=== PATIENT | female | born 1980 | race American Indian/Alaskan Native ===

== ENCOUNTER 2019-03-22 09:24 | Emergency (ER) | payer SELFPAY ==
[2019-03-22] MEDS ORDERED: SOLU-Medrol IV ONE (10:19)
[2019-03-22] MEDS ORDERED: PROVENTIL IH ONE (10:19)
[2019-03-22] MEDS ORDERED: MAGNESIUM SULFATE 2GM/50ML 2 GM/50 ML BAG IV ONE (10:19)
[2019-03-22] MEDS ORDERED: ATROVENT IH STA (10:21)
--- NOTE | 2019-03-22 10:22 | Emergency Department Report ---
ED General Adult HPI - General Chief complaint: Dyspnea/Respdistress Stated complaint: ASTHMA Time Seen by Provider: 03/22/19 10:11 Source: patient, RN notes reviewed, old records reviewed Mode of arrival: Stretcher Limitations: Physical Limitation - History of Present Illness Initial comments: This is a 38-year-old female. I have not evaluated this patient in the past. She does not have a local primary care doctor. She states she is not . Her primary registrar museum is Dr. Antonieta White Reportedly has a history of congestive heart failure, to me, unknown etiology, unknown ejection fraction, and asthma. Presents to the ER today with complaint of nontraumatic shortness of breath. This is also painless. It is constant. It worsens with physical exertion. It decreases with rest and position. Reports recent airplane shipped to [place] last month. Denies leg pain or leg swelling. Denies hematemesis, bright red blood per rectum. Had a CT scan of the chest October 2018, negative for pulmonary embolus, suggestive of congestive changes. She endorses compliance with medications. She denies dietary indiscretions. She is not on home oxygen at this time. -: Gradual Consistency: constant Improves with: other Worsens with: other Associated Symptoms: shortness of breath, weakness - Related Data Home Medications Medication Instructions Recorded Confirmed Last Taken Aspirin 1 tab PO DAILY 11/10/18 03/22/19 Unknown Carvedilol [Coreg] 1 tab PO BID 11/10/18 03/22/19 11/10/18 Furosemide [Lasix TAB] 1 tab PO DAILY 11/10/18 03/22/19 11/09/18 Spironolactone 12.5 tab PO QDAY 11/10/18 03/22/19 11/10/18 Previous Rx's Medication Instructions Recorded Last Taken Type ALBUTEROL Inhaler(NF) [VENTOLIN 2 puff IH Q4HR PRN #1 inha 11/10/18 Unknown Rx Inhaler(NF)] ALBUTEROL NEB's [Proventil 0.083% 2.5 mg IH TID PRN #30 neb 11/10/18 Unknown Rx NEBS] Famotidine [Pepcid] 20 mg PO BID #30 tablet 11/10/18 Unknown Rx Inhaler, Assist Devices [Space 1 each MC PRN #1 spacer 11/10/18 Unknown Rx Chamber Plus] predniSONE [Deltasone] 40 mg PO QDAY 5 Days tab 11/10/18 Unknown Rx Allergies Allergy/AdvReac Type Severity Reaction Status Date / Time No Known Allergies Allergy Unverified 06/16/18 14:30 ED Review of Systems ROS: Stated complaint: ASTHMA Other details as noted in HPI Constitutional: malaise. denies: fever Eyes: denies: vision change ENT: congestion Respiratory: shortness of breath Cardiovascular: denies: chest pain, edema, syncope Gastrointestinal: denies: nausea, vomiting Genitourinary: denies: dysuria Musculoskeletal: myalgia Skin: denies: lesions Neurological: weakness Psychiatric: anxiety Hematological/Lymphatic: denies: easy bleeding ED Past Medical Hx - Past Medical History Hx Congestive Heart Failure: Yes Hx Asthma: Yes - Surgical History Hx Cholecystectomy: Yes Additional Surgical History: Gall bladder removed - Social History Smoking Status: Unknown if ever smoked Substance Use Type: None - Medications Home Medications: Home Medications Medication Instructions Recorded Confirmed Last Taken Type ALBUTEROL Inhaler(NF) [VENTOLIN 2 puff IH Q4HR PRN #1 inha 11/10/18 03/22/19 Unknown Rx Inhaler(NF)] ALBUTEROL NEB's [Proventil 0.083% 2.5 mg IH TID PRN #30 neb 11/10/18 03/22/19 Unknown Rx NEBS] Aspirin 1 tab PO DAILY 11/10/18 03/22/19 Unknown History Carvedilol [Coreg] 1 tab PO BID 11/10/18 03/22/19 11/10/18 History Famotidine [Pepcid] 20 mg PO BID #30 tablet 11/10/18 03/22/19 Unknown Rx Furosemide [Lasix TAB] 1 tab PO DAILY 11/10/18 03/22/19 11/09/18 History Inhaler, Assist Devices [Space 1 each MC PRN #1 spacer 11/10/18 03/22/19 Unknown Rx Chamber Plus] Spironolactone 12.5 tab PO QDAY 11/10/18 03/22/19 11/10/18 History predniSONE [Deltasone] 40 mg PO QDAY 5 Days tab 11/10/18 03/22/19 Unknown Rx ED Physical Exam - General General appearance: alert, in distress, obese - Head Head exam: Present: atraumatic, normocephalic - Eye Eye exam: Present: normal appearance, EOMI. Absent: nystagmus - ENT ENT exam: Present: normal exam, normal orophraynx, mucous membranes moist, normal external ear exam - Neck Neck exam: Present: normal inspection, full ROM. Absent: tenderness, meningismus - Respiratory Respiratory exam: Present: respiratory distress, rales (faint rales noted at the right lower lung field.) - Cardiovascular Cardiovascular Exam: Present: regular rate, normal rhythm, normal heart sounds. Absent: bradycardia, tachycardia, irregular rhythm, systolic murmur, diastolic murmur, rubs, gallop - GI/Abdominal GI/Abdominal exam: Present: soft. Absent: distended, tenderness, guarding, rebound, rigid, pulsatile mass - Extremities Exam Extremities exam: Present: normal inspection, full ROM, other (2+ pulses noted in the bilateral upper, lower extremities. There is no long bony tenderness. The pelvis is stable. Muscular compartments are soft. There is no redness, pus, streaking or crepitus noted.). Absent: pedal edema, joint swelling, calf tenderness - Back Exam Back exam: Present: normal inspection, full ROM. Absent: tenderness, CVA tenderness (R), CVA tenderness (L), paraspinal tenderness, vertebral tenderness - Neurological Exam Neurological exam: Present: alert, other (Extraocular movements are intact bi laterally. There is no facial droop. The tongue is midline. Patient speaking in full complete sentences. There is no dysphonia. Hearing is grossly intact bilaterally. Shoulder shrug is intact bilaterally. 5/5 strength bilateral upper, lower extremities. Sensation is intact to light touch bilateral upper, lower extremities.). Absent: motor sensory deficit - Psychiatric Psychiatric exam: Present: anxious - Skin Skin exam: Present: warm, dry, intact, normal color. Absent: rash ED Course Vital Signs 03/22/19 03/22/19 09:26 11:44 Temperature 98.5 F Pulse Rate 97 H Pulse Rate [ 98 H Anterior Bilateral Throughout] Respiratory 18 Rate Respiratory 20 Rate [Anterior Bilateral Throughout] Blood Pressure 137/77 [Left] O2 Sat by Pulse 85 Oximetry - Reevaluation(s) Reevaluation #1: 03/22/19 11:06 Differential diagnosis, including but not limited to: Asthma exacerbation, co ngestive heart failure exacerbation, pneumonia, pulmonary embolism, pericardial effusion, anemia, pulmonary hypertension, right-sided cardiac dysfunction Assessment and plan: 38-year-old female with pain with shortness of breath, hypoxic on room air, hypoxic on supplemental oxygen, moderate risk by well's criteria, d-dimer elevated, x-ray of the chest nondiagnostic, CT scan of the chest ordered. Suspect multifactorial etiology, including probable undiagnosed obstructive sleep apnea, pulmonary hypertension, trouble right-sided cardiac dysfunction. We will treat her symptoms, right supplemental oxygen, obtain CT scan of the chest, and reassess Anticipate admission to the hospital. 03/22/19 13:14 Reevaluation #2: 03/22/19 13:12 CT scan is reviewed. Suggest pneumonitis versus diffuse alveolar hemorrhage. Patient did not have a hemoptysis. Clinically favor congestive heart failure versus pneumonitis versus pulmonary edema. Patient feels improved after Lasix therapy. She is amenable to hospitalization. Hospital physician is paged to arrange admission. Reevaluation #3: 03/22/19 13:30 Dr Belinda Light to admit ED Medical Decision Making - Lab Data Result diagrams: 03/22/19 10:20 03/22/19 10:20 Vital Signs 03/22/19 09:26 Temperature 98.5 F Pulse Rate 97 H Respiratory 18 Rate Blood Pressure 137/77 [Left] O2 Sat by Pulse 85 Oximetry Lab Results 03/22/19 03/22/19 03/22/19 Range/Units 10:20 10:20 10:20 WBC 6.2 (4.5-11.0) K/mm3 RBC 4.90 (3.65-5.03) M/mm3 Hgb 13.3 (10.1-14.3) gm/dl Hct 40.9 (30.3-42.9) % MCV 84 (79-97) fl MCH 27 L (28-32) pg MCHC 33 (30-34) % RDW 16.7 H (13.2-15.2) % Plt Count 219 (140-440) K/mm3 Lymph % (Auto) 26.9 (13.4-35.0) % [place] % (Auto) 6.3 (0.0-7.3) % Eos % (Auto) 2.3 (0.0-4.3) % Baso % (Auto) 0.5 (0.0-1.8) % Lymph # 1.7 (1.2-5.4) K/mm3 [place] # 0.4 (0.0-0.8) K/mm3 Eos # 0.1 (0.0-0.4) K/mm3 Baso # 0.0 (0.0-0.1) K/mm3 Seg Neutrophils % 64.0 (40.0-70.0) % Seg Neutrophils # 3.9 (1.8-7.7) K/mm3 PT 12.7 (12.2-14.9) Sec. INR 0.98 (0.87-1.13) APTT 25.4 (24.2-36.6) Sec. D-Dimer 371.68 H (0-234) ng/mlDDU Sodium 138 (137-145) mmol/L Potassium 3.7 (3.6-5.0) mmol/L Chloride 102.1 (98-107) mmol/L Carbon Dioxide 21 L (22-30) mmol/L Anion Gap 19 mmol/L BUN 14 (7-17) mg/dL Creatinine 0.8 (0.7-1.2) mg/dL Estimated GFR > 60 ml/min BUN/Creatinine Ratio 18 % Glucose 119 H (65-100) mg/dL Calcium 9.1 (8.4-10.2) mg/dL Magnesium 1.90 (1.7-2.3) mg/dL Total Bilirubin 0.60 (0.1-1.2) mg/dL ALT 18 (7-56) units/L Alkaline Phosphatase 93 (35-129) units/L Troponin T < 0.010 (0.00-0.029) ng/mL NT-Pro-B Natriuret Pep 538.5 H (0-450) pg/mL Total Protein 7.4 (6.3-8.2) g/dL Albumin 3.9 (3.9-5) g/dL Albumin/Globulin Ratio 1.1 % HCG, Quant (0-4) mIU/mL 03/22/19 Range/Units 10:20 WBC (4.5-11.0) K/mm3 RBC (3.65-5.03) M/mm3 Hgb (10.1-14.3) gm/dl Hct (30.3-42.9) % MCV (79-97) fl MCH (28-32) pg MCHC (30-34) % RDW (13.2-15.2) % Plt Count (140-440) K/mm3 Lymph % (Auto) (13.4-35.0) % [place] % (Auto) (0.0-7.3) % Eos % (Auto) (0.0-4.3) % Baso % (Auto) (0.0-1.8) % Lymph # (1.2-5.4) K/mm3 [place] # (0.0-0.8) K/mm3 Eos # (0.0-0.4) K/mm3 Baso # (0.0-0.1) K/mm3 Seg Neutrophils % (40.0-70.0) % Seg Neutrophils # (1.8-7.7) K/mm3 PT (12.2-14.9) Sec. INR (0.87-1.13) APTT (24.2-36.6) Sec. D-Dimer (0-234) ng/mlDDU Sodium (137-145) mmol/L Potassium (3.6-5.0) mmol/L Chloride (98-107) mmol/L Carbon Dioxide (22-30) mmol/L Anion Gap mmol/L BUN (7-17) mg/dL Creatinine (0.7-1.2) mg/dL Estimated GFR ml/min BUN/Creatinine Ratio % Glucose (65-100) mg/dL Calcium (8.4-10.2) mg/dL Magnesium (1.7-2.3) mg/dL Total Bilirubin (0.1-1.2) mg/dL ALT (7-56) units/L Alkaline Phosphatase (35-129) units/L Troponin T (0.00-0.029) ng/mL NT-Pro-B Natriuret Pep (0-450) pg/mL Total Protein (6.3-8.2) g/dL Albumin (3.9-5) g/dL Albumin/Globulin Ratio % HCG, Quant < 2 (0-4) mIU/mL - EKG Data -: EKG Interpreted by Me EKG shows normal: sinus rhythm Rate: normal - EKG Data When compared to previous EKG there are: no significant change 03/22/19 11:08 This EKG shows a sinus rhythm, with a borderline leftward axis, left anterior fascicular block, premature ventricular contractions, T-wave abnormalities, QTC prolonged, EKG is abnormal, the EKG is not consistent with ST elevation myocardial infarction, it appears to be unchanged from prior EKG from October 2018, with the exception of more frequent PVC. - Radiology Data Radiology results: pending, report reviewed, image reviewed interpreted by me: X-ray the chest negative for acute disease, elevated right hemidiaphragm, question lower lobe atelectatic changes Acute onset chest pain with dyspnea. TECHNIQUE: Axial CT images were obtained through the chest after injection of 100 mL IV contrast. 3 plane MIP reconstructions were produced. All CT scans at this location are performed using CT dose reduction for ALARA by means of automated exposure control. COMPARISON: None available. FINDINGS: PULMONARY ARTERIES: No definite central pulmonary thromboembolus identified. Prominent artifact is identified centrally. AORTA AND ARTERIES: No acute abnormality. MEDIASTINUM: No mass, lymphadenopathy or other significant abnormality. The heart is normal in size without a pericardial effusion. The trachea and main bronchi are patent and normal in caliber. LUNGS: Severe and extensive groundglass opacity is identified throughout both lungs. Less density is predominantly basilar and posterior. ADDITIONAL FINDINGS: None. UPPER ABDOMEN: No acute findings. BONES: No significant osseous abnormality. IMPRESSION: 1. No definite CT evidence for central pulmonary embolism. The peripheral arteries were poorly opacified and cannot be assessed 2. Severe and extensive bilateral groundglass opacity throughout both lungs, suspicious for diffuse alveolar hemorrhage versus severe and diffuse pneumonitis. Signer Name: Gómez Warner MD Signed: 03/22/2019 1:03 PM Workstation Name: [id number] Transcribed By: BC Dictated By: Gómez Warner MD Electronically Authenticated By: Gómez Warner MD Signed Date/Time: 03/22/19 1303 [facility] [address] [place] [address] XRay Report Signed Patient: SEAN BULLOCK MR#: [id number] : 1980 Acct:[id number] Age/Sex: 38 / F ADM Date: 03/22/19 Loc: ED Attending Dr: Ordering Physician: DEMI LLANOS MD Date of Service: 03/22/19 Procedure(s): XR chest 1V ap Accession Number(s): [id number] cc: DEMI LLANOS MD Fluoro Time In Minutes: Chest single view INDICATION: Dyspnea IMPRESSION: Moderate cardiopulmonary edema. Tiny pleural effusions Signer Name: Gómez Warner MD Signed: 03/22/2019 11:43 AM Workstation Name: [id number] Transcribed By: BC Dictated By: Gómez Warner MD Electronically Authenticated By: Gómez Warner MD Signed Date/Time: 03/22/19 1143 Critical care attestation.: If time is entered above; I have spent that time in minutes in the direct care of this critically ill patient, excluding procedure time. ED Disposition Clinical Impression: Acute dyspnea, Pneumonitis Disposition: OP ADMIT IP TO THIS HOSP Is pt being admited?: Yes Does the pt Need Aspirin: Yes Condition: Stable
[2019-03-22 10:30] LABS: Basophils % (Auto) 0.5 % (0.0-1.8); Eosinophils # (Auto) 0.1 K/mm3 (0.0-0.4); Eosinophils % (Auto) 2.3 % (0.0-4.3); Hematocrit 40.9 % (30.3-42.9); Hemoglobin 13.3 gm/dl (10.1-14.3); Lymphocytes # (Auto) 1.7 K/mm3 (1.2-5.4); Lymphocytes % (Auto) 26.9 % (13.4-35.0); Mean Corpuscular HGB Conc 33 % (30-34); Mean Corpuscular Volume 84 fl (79-97); Monocytes # (Auto) 0.4 K/mm3 (0.0-0.8); Monocytes % (Auto) 6.3 % (0.0-7.3); Platelet Count 219 K/mm3 (140-440); Red Cell Distribution Width 16.7 % (13.2-15.2)
[2019-03-22 10:45] LABS: INR 0.98 (0.87-1.13)
[2019-03-22 10:46] LABS: Partial Thromboplastin Time 25.4 Sec. (24.2-36.6)
[2019-03-22 10:54] LABS: Alanine Aminotransferase 18 units/L (7-56); Albumin 3.9 g/dL (3.9-5); BUN/Creatinine Ratio 18; Blood Urea Nitrogen 14 mg/dL (7-17); Calcium 9.1 mg/dL (8.4-10.2); Hemolysis Index 52
[2019-03-22] MEDS ORDERED: LASIX IV ONE (11:06)
[2019-03-22] MEDS ORDERED: BABY ASPIRIN PO ONE (11:10)
--- NOTE | 2019-03-22 11:47 | XRay Report ---
Chest single view INDICATION: Dyspnea IMPRESSION: Moderate cardiopulmonary edema. Tiny pleural effusions Signer Name: Gómez Warner MD Signed: 03/22/2019 11:43 AM Workstation Name: [id number]
--- NOTE | 2019-03-22 13:07 | Cat Scan Report ---
CTA CHEST WITH IV CONTRAST INDICATION: Acute onset chest pain with dyspnea. TECHNIQUE: Axial CT images were obtained through the chest after injection of 100 mL IV contrast. 3 plane MIP re constructions were produced. All CT scans at this location are performed using CT dose reduction for ALARA by means of automated exposure control. COMPARISON: None available. FINDINGS: PULMONARY ARTERIES: No definite central pulmonary thromboembolus identified. Prominent artifact is id entified centrally. AORTA AND ARTERIES: No acute abnormality. MEDIASTINUM: No mass, lymphadenopathy or other significant abnormality. The heart is normal in size w ithout a pericardial effusion. The trachea and main bronchi are patent and normal in caliber. LUNGS: Severe and extensive groundglass opacity is identified throughout both lungs. Less density is predominantly basilar and posterior. ADDITIONAL FINDINGS: None. UPPER ABDOMEN: No acute findings. BONES: No significant osseous abnormality. IMPRESSION: 1. No definite CT evidence for central pulmonary embolism. The peripheral arteries were poorly opacif ied and cannot be assessed 2. Severe and extensive bilateral groundglass opacity throughout both lungs, suspicious for diffuse a lveolar hemorrhage versus severe and diffuse pneumonitis. Signer Name: Gómez Warner MD Signed: 03/22/2019 1:03 PM Workstation Name: [id number]
[2019-03-22] MEDS ORDERED: ZITHROMAX PO ONE (13:13)
[2019-03-22] MEDS ORDERED: ROCEPHIN 1,000 MG in NACL 0.9% 50 ML IV STA (13:13)
[2019-03-22] MEDS ORDERED: ROCEPHIN/NS 1 GM/50 ML 1 GM/50 ML BAG IV ONE (14:00)
[2019-03-22 15:40] VITALS: BP 106/54
[2019-03-22 15:55] LABS: ABG Base Excess -2.6 mmol/L (-2.0-3.0); ABG HCO3 21.5 mmol/L (20.0-26.0); ABG Methemoglobin 0.5 % (0.0-1.5); ABG Oxygen Saturation 92.6 % (95.0-99.0); ABG PCO2 35.4 mm Hg; ABG PH 7.402 pH Units (7.350-7.450)
--- NOTE | 2019-03-22 17:50 | Event Note ---
Ambulatory SaO2: 95% on Room air
== END 2019-03-22 18:40 | disposition admitted as inpatient to this hospital (09) ==
LOC: ED 09:24
DX: J18.9 Pneumonia, unspecified organism (principal); R06.00 Dyspnea, unspecified
CPT/HCPCS: 36415; 71045; 71275; 80053; 82550; 82803; 83735; 83880; 84484; 84702; 85025; 85379; 85610; 85730; 87040; 93005; 93010; 94644; 96365; 96367; 96375; 99285; J0696; J1940; J2930; J3475; Q9967

== ENCOUNTER 2020-02-18 21:29 | Emergency (ER) | payer SELFPAY ==
[2020-02-18 21:34] VITALS: BP 151/91
[2020-02-19] MEDS ORDERED: LIDOCAINE-MPF (1%) 10 MG/1 ML VIAL 5 ML INFILTRATI ONE (02:41)
[2020-02-19] MEDS ORDERED: HYDROcodone/ACETAMINOPHEN 5-325 MG TAB PO ONE (02:42)
--- NOTE | 2020-02-19 03:14 | Emergency Department Report ---
- General Chief complaint: Skin/Abscess/Foreign Body Stated complaint: BOIL ON BUTTOCKS Time Seen by Provider: 02/19/20 02:25 Source: patient Mode of arrival: Ambulatory Limitations: No Limitations - History of Present Illness Initial comments: Patient is a 39-year-old -Filipino female who presents for buttocks abscess left x3 days. Patient states lesion ruptured while sitting in triage. Pain is now 3/10 aching. Patient denies fevers or chills no nausea vomiting no stomach pain no problem with bowel movement. Pain is exacerbated by palpation and sitting. Pain is relieved by nothing tried. MD complaint: abscess/boil Onset/Timin -: days(s) Tetanus Up to Date: yes Location: buttocks Severity: moderate Severity scale (0 -10): 4 Quality: burning, aching Consistency: intermittent Improves with: none Worsens with: none Context: none Treatments Prior to Arrival: none - Related Data Home Medications Medication Instructions Recorded Confirmed Last Taken Aspirin 1 tab PO DAILY 11/10/18 03/22/19 Unknown Furosemide [Lasix TAB] 1 tab PO DAILY 11/10/18 03/22/19 11/09/18 Spironolactone 12.5 tab PO QDAY 11/10/18 03/22/19 11/10/18 carvediloL [Coreg] 1 tab PO BID 11/10/18 03/22/19 11/10/18 Previous Rx's Medication Instructions Recorded Last Taken Type ALBUTEROL Inhaler(NF) [VENTOLIN 2 puff IH Q4HR PRN #1 inha 11/10/18 Unknown Rx Inhaler(NF)] ALBUTEROL NEB's [Proventil 0.083% 2.5 mg IH TID PRN #30 neb 11/10/18 Unknown Rx NEBS] Famotidine [Pepcid] 20 mg PO BID #30 tablet 11/10/18 Unknown Rx Inhaler, Assist Devices [Space 1 each MC PRN #1 spacer 11/10/18 Unknown Rx Chamber Plus] predniSONE [Deltasone] 40 mg PO QDAY 5 Days tab 11/10/18 Unknown Rx Albuterol Mdi (or & Nicu Only) 1 puff IH TID PRN #2 inha 03/22/19 Unknown Rx [Proair] Albuterol Sulfate [Albuterol 0.63% 0.63 mg IH TID PRN #1 box 03/22/19 Unknown Rx NEBS] Ciprofloxacin HCl [Ciprofloxacin 500 mg PO Q12HR #12 tab 03/22/19 Unknown Rx TAB] Compressor, For Nebulizer [Ebase 1 each MC TID PRN #1 each 03/22/19 Unknown Rx Controller] Ipratropium [Atrovent NEB] 0.5 mg IH Q8HRT #1 box 03/22/19 Unknown Rx Pantoprazole [Protonix] 40 mg PO BID #60 tablet 03/22/19 Unknown Rx Prednisone [predniSONE 10 mg 10 mg PO .TAPER #1 tab.ds.pk 03/22/19 Unknown Rx (6-Day Pack, 21 Tabs)] Spironolactone [Aldactone] 25 mg PO QDAY #30 tablet 04/11/19 Unknown Rx carvediloL [Coreg] 3.125 mg PO BID #60 tablet 04/11/19 Unknown Rx Acetaminophen/Codeine [Tylenol 1 tab PO Q6H PRN #12 tab 02/19/20 Unknown Rx /Codeine # 3 tab] cephALEXin [Keflex] 500 mg PO Q8HR 7 Days #21 cap 02/19/20 Unknown Rx Allergies Allergy/AdvReac Type Severity Reaction Status Date / Time No Known Allergies Allergy Unverified 06/16/18 14:30 Abscess Boil HPI - HPI Chief Complaint: Skin/Abscess/Foreign Body Stated Complaint: BOIL ON BUTTOCKS Time Seen by Provider: 02/19/20 02:25 Duration: 4 Days Location: Sacral/Pilonidal Severity: Moderate History: Yes Pain, Yes Purulent Drainage, Yes Previous History, No Fever, No Numbness, No Foreign Body, No Insect Bite Home Medications: Home Medications Medication Instructions Recorded Confirmed Last Taken Aspirin 1 tab PO DAILY 11/10/18 03/22/19 Unknown Furosemide [Lasix TAB] 1 tab PO DAILY 11/10/18 03/22/19 11/09/18 Spironolactone 12.5 tab PO QDAY 11/10/18 03/22/19 11/10/18 carvediloL [Coreg] 1 tab PO BID 11/10/18 03/22/19 11/10/18 Previous Rx's Medication Instructions Recorded Last Taken Type ALBUTEROL Inhaler(NF) [VENTOLIN 2 puff IH Q4HR PRN #1 inha 11/10/18 Unknown Rx Inhaler(NF)] ALBUTEROL NEB's [Proventil 0.083% 2.5 mg IH TID PRN #30 neb 11/10/18 Unknown Rx NEBS] Famotidine [Pepcid] 20 mg PO BID #30 tablet 11/10/18 Unknown Rx Inhaler, Assist Devices [Space 1 each MC PRN #1 spacer 11/10/18 Unknown Rx Chamber Plus] predniSONE [Deltasone] 40 mg PO QDAY 5 Days tab 11/10/18 Unknown Rx Albuterol Mdi (or & Nicu Only) 1 puff IH TID PRN #2 inha 03/22/19 Unknown Rx [Proair] Albuterol Sulfate [Albuterol 0.63% 0.63 mg IH TID PRN #1 box 03/22/19 Unknown Rx NEBS] Ciprofloxacin HCl [Ciprofloxacin 500 mg PO Q12HR #12 tab 03/22/19 Unknown Rx TAB] Compressor, For Nebulizer [Ebase 1 each MC TID PRN #1 each 03/22/19 Unknown Rx Controller] Ipratropium [Atrovent NEB] 0.5 mg IH Q8HRT #1 box 03/22/19 Unknown Rx Pantoprazole [Protonix] 40 mg PO BID #60 tablet 03/22/19 Unknown Rx Prednisone [predniSONE 10 mg 10 mg PO .TAPER #1 tab.ds.pk 03/22/19 Unknown Rx (6-Day Pack, 21 Tabs)] Spironolactone [Aldactone] 25 mg PO QDAY #30 tablet 04/11/19 Unknown Rx carvediloL [Coreg] 3.125 mg PO BID #60 tablet 04/11/19 Unknown Rx Acetaminophen/Codeine [Tylenol 1 tab PO Q6H PRN #12 tab 02/19/20 Unknown Rx /Codeine # 3 tab] cephALEXin [Keflex] 500 mg PO Q8HR 7 Days #21 cap 02/19/20 Unknown Rx Allergies/Adverse Reactions: Allergies Allergy/AdvReac Type Severity Reaction Status Date / Time No Known Allergies Allergy Unverified 06/16/18 14:30 ED Review of Systems ROS: Stated complaint: BOIL ON BUTTOCKS Other details as noted in HPI Constitutional: denies: chills, fever Eyes: denies: eye pain, eye discharge, vision change ENT: denies: ear pain, throat pain Respiratory: denies: cough, shortness of breath, wheezing Cardiovascular: denies: chest pain, palpitations Endocrine: no symptoms reported Gastrointestinal: denies: abdominal pain, nausea, vomiting, diarrhea Genitourinary: denies: urgency, dysuria, discharge Musculoskeletal: denies: back pain, joint swelling, arthralgia Skin: other (abscess left buttock ). denies: rash, lesions Neurological: denies: headache, weakness, paresthesias Psychiatric: denies: anxiety, depression Hematological/Lymphatic: denies: easy bleeding, easy bruising ED Past Medical Hx - Past Medical History Hx Congestive Heart Failure: Yes Hx Asthma: Yes - Surgical History Hx Cholecystectomy: Yes Additional Surgical History: Gall bladder removed - Social History Smoking Status: Never Smoker Substance Use Type: None - Medications Home Medications: Home Medications Medication Instructions Recorded Confirmed Last Taken Type ALBUTEROL Inhaler(NF) [VENTOLIN 2 puff IH Q4HR PRN #1 inha 11/10/18 03/22/19 Unknown Rx Inhaler(NF)] ALBUTEROL NEB's [Proventil 0.083% 2.5 mg IH TID PRN #30 neb 11/10/18 03/22/19 Unknown Rx NEBS] Aspirin 1 tab PO DAILY 11/10/18 03/22/19 Unknown History Famotidine [Pepcid] 20 mg PO BID #30 tablet 11/10/18 03/22/19 Unknown Rx Furosemide [Lasix TAB] 1 tab PO DAILY 11/10/18 03/22/19 11/09/18 History Inhaler, Assist Devices [Space 1 each MC PRN #1 spacer 11/10/18 03/22/19 Unknown Rx Chamber Plus] Spironolactone 12.5 tab PO QDAY 11/10/18 03/22/19 11/10/18 History carvediloL [Coreg] 1 tab PO BID 11/10/18 03/22/19 11/10/18 History predniSONE [Deltasone] 40 mg PO QDAY 5 Days tab 11/10/18 03/22/19 Unknown Rx Albuterol Mdi (or & Nicu Only) 1 puff IH TID PRN #2 inha 03/22/19 Unknown Rx [Proair] Albuterol Sulfate [Albuterol 0.63% 0.63 mg IH TID PRN #1 box 03/22/19 Unknown Rx NEBS] Ciprofloxacin HCl [Ciprofloxacin 500 mg PO Q12HR #12 tab 03/22/19 Unknown Rx TAB] Compressor, For Nebulizer [Ebase 1 each MC TID PRN #1 each 03/22/19 Unknown Rx Controller] Ipratropium [Atrovent NEB] 0.5 mg IH Q8HRT #1 box 03/22/19 Unknown Rx Pantoprazole [Protonix] 40 mg PO BID #60 tablet 03/22/19 Unknown Rx Prednisone [predniSONE 10 mg 10 mg PO .TAPER #1 tab.ds.pk 03/22/19 Unknown Rx (6-Day Pack, 21 Tabs)] Spironolactone [Aldactone] 25 mg PO QDAY #30 tablet 04/11/19 Unknown Rx carvediloL [Coreg] 3.125 mg PO BID #60 tablet 04/11/19 Unknown Rx Acetaminophen/Codeine [Tylenol 1 tab PO Q6H PRN #12 tab 02/19/20 Unknown Rx /Codeine # 3 tab] cephALEXin [Keflex] 500 mg PO Q8HR 7 Days #21 cap 02/19/20 Unknown Rx ED Physical Exam - General Limitations: No Limitations General appearance: alert, in no apparent distress - Head Head exam: Present: atraumatic - Eye Eye exam: Present: normal appearance - ENT ENT exam: Present: mucous membranes moist - Neck Neck exam: Present: normal inspection - Respiratory Respiratory exam: Present: normal lung sounds bilaterally, prolonged expiratory. Absent: respiratory distress, wheezes, stridor, chest wall tenderness - Cardiovascular Cardiovascular Exam: Present: regular rate, normal rhythm. Absent: systolic murmur, diastolic murmur, rubs, gallop - GI/Abdominal GI/Abdominal exam: Present: soft, normal bowel sounds. Absent: distended, tenderness, guarding, rebound, rigid, bruit, hernia - Rectal Rectal exam: Present: normal inspection. Absent: hemorrhoids, tenderness - Extremities Exam Extremities exam: Present: normal inspection, full ROM, normal capillary refill. Absent: tenderness - Back Exam Back exam: Present: normal inspection, full ROM. Absent: tenderness, CVA tenderness (R), CVA tenderness (L), vertebral tenderness, rash noted - Neurological Exam Neurological exam: Present: alert, oriented X3, CN II-XII intact, normal gait - Psychiatric Psychiatric exam: Present: normal affect, normal mood - Skin Skin exam: Present: warm, dry, intact, normal color, erythema (2x3 cm fluctuant, mild erythema surrounding yellow green drainage. ). Absent: rash ED Course Vital Signs 02/18/20 21:33 Temperature 99.3 F Pulse Rate 98 H Respiratory 20 Rate Blood Pressure 151/91 O2 Sat by Pulse 99 Oximetry - I & D Left Buttocks Type of Procedure: Simple Blade Size: 11 I & D Procedure: betadine prep, sterile drapes applied, sterile dressing applied Progress: left buttocks abscess 2x3 cm , erythema , fluctuant, site cleaned with betadine solution, anesthesia with 1% lidociane plan, incision with 11 blade scaple, moderate purulent output wound irrigated wtih 40 cc sterile saline, all bleeding controlled steile dressing applied pt toleratedf procedure with minimal distress, pt given wound, card in structions , verbalized understanding of same. ED Medical Decision Making - Medical Decision Making abscess buttock s for I&D , see procedure note pt tolerated procedure with minimal distress. pt will be dc'd to home with Critical care attestation.: If time is entered above; I have spent that time in minutes in the direct care of this critically ill patient, excluding procedure time. ED Disposition Clinical Impression: Abscess of buttock Disposition: DC-01 TO HOME OR SELFCARE Is pt being admited?: No Does the pt Need Aspirin: No Condition: Stable Instructions: Abscess (ED) Prescriptions: cephALEXin [Keflex] 500 mg PO Q8HR 7 Days #21 cap Acetaminophen/Codeine [Tylenol /Codeine # 3 tab] 1 tab PO Q6H PRN #12 tab PRN Reason: pain Referrals: [facility] [Provider Group] - 3-5 Days Forms: Work/School Release Form(ED)
== END 2020-02-19 03:50 | disposition home or self-care (01) ==
LOC: ED 21:29
DX: L02.31 Cutaneous abscess of buttock (principal); I50.9 Heart failure, unspecified; J45.909 Unspecified asthma, uncomplicated; Z98.890 Other specified postprocedural states; Z79.2 Long term (current) use of antibiotics; Z79.899 Other long term (current) drug therapy; Z88.8 Allergy status to other drugs, medicaments and biological substances

== ENCOUNTER 2021-03-18 12:37 | Emergency (ER) | payer MEDICARE ==
--- NOTE | 2021-03-18 14:42 | Emergency Department Report ---
- General Chief complaint: Extremity Injury, Lower Stated complaint: VEINS (RT) LEG BLEEDING Time Seen by Provider: 03/18/21 14:35 Source: patient Mode of arrival: Ambulatory Limitations: No Limitations - History of Present Illness Initial comments: Patient is a 39-year-old female presents emergency room with complaints of bleeding varicose veins on her right lower extremity that occurred just prior to arrival. Patient states that she was in the shower and when she got out she noticed the bleeding. She states that she has had the varicose veins for quite some time. She denies any trauma or injury that she is aware of. She denies any numbness or weakness. Past medical history of congestive heart failure and asthma. Allergy to tramadol. - Related Data Home Medications Medication Instructions Recorded Confirmed Last Taken Aspirin 1 tab PO DAILY 11/10/18 03/22/19 Unknown Furosemide [Lasix TAB] 1 tab PO DAILY 11/10/18 03/22/19 11/09/18 Spironolactone 12.5 tab PO QDAY 11/10/18 03/22/19 11/10/18 carvediloL [Coreg] 1 tab PO BID 11/10/18 03/22/19 11/10/18 Previous Rx's Medication Instructions Recorded Last Taken Type ALBUTEROL Inhaler(NF) [VENTOLIN 2 puff IH Q4HR PRN #1 inha 11/10/18 Unknown Rx Inhaler(NF)] ALBUTEROL NEB's [Proventil 0.083% 2.5 mg IH TID PRN #30 neb 11/10/18 Unknown Rx NEBS] Famotidine [Pepcid] 20 mg PO BID #30 tablet 11/10/18 Unknown Rx Inhaler, Assist Devices [Space 1 each MC PRN #1 spacer 11/10/18 Unknown Rx Chamber Plus] predniSONE [Deltasone] 40 mg PO QDAY 5 Days tab 11/10/18 Unknown Rx Albuterol Mdi (or & Nicu Only) 1 puff IH TID PRN #2 inha 03/22/19 Unknown Rx [Proair] Albuterol Sulfate [Albuterol 0.63% 0.63 mg IH TID PRN #1 box 03/22/19 Unknown Rx NEBS] Ciprofloxacin HCl [Ciprofloxacin 500 mg PO Q12HR #12 tab 03/22/19 Unknown Rx TAB] Compressor, For Nebulizer [Ebase 1 each MC TID PRN #1 each 03/22/19 Unknown Rx Controller] Ipratropium [Atrovent NEB] 0.5 mg IH Q8HRT #1 box 03/22/19 Unknown Rx Pantoprazole [Protonix] 40 mg PO BID #60 tablet 03/22/19 Unknown Rx Prednisone [predniSONE 10 mg 10 mg PO .TAPER #1 tab.ds.pk 03/22/19 Unknown Rx (6-Day Pack, 21 Tabs)] Spironolactone [Aldactone] 25 mg PO QDAY #30 tablet 04/11/19 Unknown Rx carvediloL [Coreg] 3.125 mg PO BID #60 tablet 04/11/19 Unknown Rx Acetaminophen/Codeine [Tylenol 1 tab PO Q6H PRN #12 tab 02/19/20 Unknown Rx /Codeine # 3 tab] cephALEXin [Keflex] 500 mg PO Q8HR 7 Days #21 cap 02/19/20 Unknown Rx Allergies Allergy/AdvReac Type Severity Reaction Status Date / Time tramadol [From Ultram] Allergy Intermediate Hives Verified 02/19/20 03:49 Abscess Boil HPI - HPI Chief Complaint: Extremity Injury, Lower Stated Complaint: VEINS (RT) LEG BLEEDING Time Seen by Provider: 03/18/21 14:35 Home Medications: Home Medications Medication Instructions Recorded Confirmed Last Taken Aspirin 1 tab PO DAILY 11/10/18 03/22/19 Unknown Furosemide [Lasix TAB] 1 tab PO DAILY 11/10/18 03/22/19 11/09/18 Spironolactone 12.5 tab PO QDAY 11/10/18 03/22/19 11/10/18 carvediloL [Coreg] 1 tab PO BID 11/10/18 03/22/19 11/10/18 Previous Rx's Medication Instructions Recorded Last Taken Type ALBUTEROL Inhaler(NF) [VENTOLIN 2 puff IH Q4HR PRN #1 inha 11/10/18 Unknown Rx Inhaler(NF)] ALBUTEROL NEB's [Proventil 0.083% 2.5 mg IH TID PRN #30 neb 11/10/18 Unknown Rx NEBS] Famotidine [Pepcid] 20 mg PO BID #30 tablet 11/10/18 Unknown Rx Inhaler, Assist Devices [Space 1 each MC PRN #1 spacer 11/10/18 Unknown Rx Chamber Plus] predniSONE [Deltasone] 40 mg PO QDAY 5 Days tab 11/10/18 Unknown Rx Albuterol Mdi (or & Nicu Only) 1 puff IH TID PRN #2 inha 03/22/19 Unknown Rx [Proair] Albuterol Sulfate [Albuterol 0.63% 0.63 mg IH TID PRN #1 box 03/22/19 Unknown Rx NEBS] Ciprofloxacin HCl [Ciprofloxacin 500 mg PO Q12HR #12 tab 03/22/19 Unknown Rx TAB] Compressor, For Nebulizer [Ebase 1 each MC TID PRN #1 each 03/22/19 Unknown Rx Controller] Ipratropium [Atrovent NEB] 0.5 mg IH Q8HRT #1 box 03/22/19 Unknown Rx Pantoprazole [Protonix] 40 mg PO BID #60 tablet 03/22/19 Unknown Rx Prednisone [predniSONE 10 mg 10 mg PO .TAPER #1 tab.ds.pk 03/22/19 Unknown Rx (6-Day Pack, 21 Tabs)] Spironolactone [Aldactone] 25 mg PO QDAY #30 tablet 04/11/19 Unknown Rx carvediloL [Coreg] 3.125 mg PO BID #60 tablet 04/11/19 Unknown Rx Acetaminophen/Codeine [Tylenol 1 tab PO Q6H PRN #12 tab 02/19/20 Unknown Rx /Codeine # 3 tab] cephALEXin [Keflex] 500 mg PO Q8HR 7 Days #21 cap 02/19/20 Unknown Rx Allergies/Adverse Reactions: Allergies Allergy/AdvReac Type Severity Reaction Status Date / Time tramadol [From Ultram] Allergy Intermediate Hives Verified 02/19/20 03:49 ED Review of Systems ROS: Stated complaint: VEINS (RT) LEG BLEEDING Other details as noted in HPI Comment: All other systems reviewed and negative ED Past Medical Hx - Past Medical History Previous Medical History?: Yes Hx Congestive Heart Failure: Yes Hx Asthma: Yes Additional medical history: Vericose vein - Surgical History Past Surgical History?: Yes Hx Cholecystectomy: Yes Additional Surgical History: Gall bladder removed - Social History Smoking Status: Never Smoker Substance Use Type: Alcohol - Medications Home Medications: Home Medications Medication Instructions Recorded Confirmed Last Taken Type ALBUTEROL Inhaler(NF) [VENTOLIN 2 puff IH Q4HR PRN #1 inha 11/10/18 03/22/19 Unknown Rx Inhaler(NF)] ALBUTEROL NEB's [Proventil 0.083% 2.5 mg IH TID PRN #30 neb 11/10/18 03/22/19 Unknown Rx NEBS] Aspirin 1 tab PO DAILY 11/10/18 03/22/19 Unknown History Famotidine [Pepcid] 20 mg PO BID #30 tablet 11/10/18 03/22/19 Unknown Rx Furosemide [Lasix TAB] 1 tab PO DAILY 11/10/18 03/22/19 11/09/18 History Inhaler, Assist Devices [Space 1 each PRN #1 spacer 11/10/18 03/22/19 Unknown Rx Chamber Plus] Spironolactone 12.5 tab PO QDAY 11/10/18 03/22/19 11/10/18 History carvediloL [Coreg] 1 tab PO BID 11/10/18 03/22/19 11/10/18 History predniSONE [Deltasone] 40 mg PO QDAY 5 Days tab 11/10/18 03/22/19 Unknown Rx Albuterol Mdi (or & Nicu Only) 1 puff IH TID PRN #2 inha 03/22/19 Unknown Rx [Proair] Albuterol Sulfate [Albuterol 0.63% 0.63 mg IH TID PRN #1 box 03/22/19 Unknown Rx NEBS] Ciprofloxacin HCl [Ciprofloxacin 500 mg PO Q12HR #12 tab 03/22/19 Unknown Rx TAB] Compressor, For Nebulizer [Ebase 1 each MC TID PRN #1 each 03/22/19 Unknown Rx Controller] Ipratropium [Atrovent NEB] 0.5 mg IH Q8HRT #1 box 03/22/19 Unknown Rx Pantoprazole [Protonix] 40 mg PO BID #60 tablet 03/22/19 Unknown Rx Prednisone [predniSONE 10 mg 10 mg PO .TAPER #1 tab.ds.pk 03/22/19 Unknown Rx (6-Day Pack, 21 Tabs)] Spironolactone [Aldactone] 25 mg PO QDAY #30 tablet 04/11/19 Unknown Rx carvediloL [Coreg] 3.125 mg PO BID #60 tablet 04/11/19 Unknown Rx Acetaminophen/Codeine [Tylenol 1 tab PO Q6H PRN #12 tab 02/19/20 Unknown Rx /Codeine # 3 tab] cephALEXin [Keflex] 500 mg PO Q8HR 7 Days #21 cap 02/19/20 Unknown Rx ED Physical Exam - General Limitations: No Limitations General appearance: alert, in no apparent distress - Head Head exam: Present: atraumatic, normocephalic - Eye Eye exam: Present: normal appearance - ENT ENT exam: Present: mucous membranes moist - Respiratory Respiratory exam: Absent: respiratory distress, accessory muscle use - Neurological Exam Neurological exam: Present: alert, oriented X3 - Psychiatric Psychiatric exam: Present: normal affect, normal mood - Skin Skin exam: Present: warm, dry, other (there are multiple varicose veins present to the right posterior thigh, there is a 2mm area where there is dried blood present, no pulsating blood, no significant bleeding, no ulceration) ED Medical Decision Making - Medical Decision Making Patient is a 39-year-old female presents emergency room with complaints of bleeding varicose veins on her right lower extremity that occurred just prior to arrival. Patient states that she was in the shower and when she got out she n oticed the bleeding. She states that she has had the varicose veins for quite some time. She denies any trauma or injury that she is aware of. She denies any numbness or weakness. Past medical history of congestive heart failure and asthma. Allergy to tramadol. Vitals recorded on patient's paper chart are stable, advised nurse to please chart in the computer. On exam:there are multiple varicose veins present to the right posterior thigh, there is a 2mm area where there is dried blood present, no pulsating blood, no significant bleeding, no ulceration. Nonadherent dressing placed. There is no ulceration, no significant bleeding, does not need repair. Patient will be referred to vascular. Advised patient Please follow-up with a vascular doctor. Return to emergency room for any new or worsening symptoms. Critical care attestation.: If time is entered above; I have spent that time in minutes in the direct care of this critically ill patient, excluding procedure time. ED Disposition Clinical Impression: Bleeding from varicose vein Disposition: 01 HOME / SELF CARE / HOMELESS Is pt being admited?: No Does the pt Need Aspirin: No Condition: Stable Instructions: Varicose Veins Additional Instructions: Please follow-up with a vascular doctor. Return to emergency room for any new or worsening symptoms. Referrals: [facility] [Provider Group] - 2-3 Days Time of Disposition: 14:41 Print Language: ITALIAN
== END 2021-03-18 14:55 | disposition home or self-care (01) ==
LOC: ED 12:37
DX: I83.891 Varicose veins of right lower extremity with other complications (principal); I50.9 Heart failure, unspecified; J45.909 Unspecified asthma, uncomplicated; Z98.890 Other specified postprocedural states; Z88.5 Allergy status to narcotic agent
CPT/HCPCS: 99282

== ENCOUNTER 2021-11-12 09:11 | Emergency (ER) | payer MEDICARE ==
[2021-11-12] MEDS ORDERED: ASPIRIN 325 MG TAB PO ONE (09:28)
--- NOTE | 2021-11-12 09:59 | XRay Report ---
XR chest routine 2V INDICATION / CLINICAL INFORMATION: chest pain. COMPARISON: 04/11/2019 FINDINGS: SUPPORT DEVICES: None. HEART /PULMONARY VASCULATURE: Heart is enlarged. No significant pulmonary vasculature congestion. LUNGS / PLEURA: No significant pulmonary or pleural abnormality. No pneumothorax. ADDITIONAL FINDINGS: No significant additional findings. IMPRESSION: 1. No acute findings. Signer Name: Kendrick Schafer MD Signed: 11/12/2021 9:54 AM Workstation Name: [id number] [id number]
--- NOTE | 2021-11-12 10:49 | Electrocardiograph Report ---
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
--- NOTE | 2021-11-12 10:55 | Emergency Department Report ---
HPI - General Chief Complaint: Chest Pain Time Seen by Provider: 11/12/21 10:37 - HPI HPI: Room 5 The patient is a 40-year-old female present with chief complaint of chest pain. Patient states yesterday morning she had an episode of substernal chest pain that was sharp in nature and lasted approximate 30 minutes. Patient admits to slight shortness of breath with the pain but denies nausea/vomiting or diaphoresis. Patient states symptoms resolved last night she had an asthma attack and when she woke up this morning she again had a substernal chest pain. Patient denies history of cough or fever. Patient denies pleurisy. Patient states she last had an episode of chest pain approximately 15 minutes ago prior to this interview but currently is pain-free. Patient currently denies having any complaints ED Past Medical Hx - Past Medical History Previous Medical History?: Yes Hx Congestive Heart Failure: Yes Hx Asthma: Yes Hx COPD: Yes Additional medical history: Morbid obesity, Hiatal Hernia - Surgical History Past Surgical History?: Yes Hx Cholecystectomy: Yes Additional Surgical History: Gall bladder removed - Family History Family history: no significant - Social History Smoking Status: Never Smoker Substance Use Type: None (Denies illicit drug use), Alcohol (Occasional) - Medications Home Medications: Home Medications Medication Instructions Recorded Confirmed Last Taken Type Aspirin [Aspirin BABY CHEW TAB] 81 mg PO QDAY #30 tab.chew 07/30/18 01/01/19 04/14/20 11:30 Rx ALBUTEROL Inhaler(NF) [VENTOLIN 2 puff IH Q4HR PRN #1 inha 11/10/18 03/22/19 Unknown Rx Inhaler(NF)] ALBUTEROL NEB's [Proventil 0.083% 2.5 mg IH TID PRN #30 neb 11/10/18 03/22/19 Unknown Rx NEBS] Aspirin 1 tab PO DAILY 11/10/18 03/22/19 Unknown History Famotidine [Pepcid] 20 mg PO BID #30 tablet 11/10/18 03/22/19 Unknown Rx Furosemide [Lasix TAB] 1 tab PO DAILY 11/10/18 03/22/19 11/09/18 History Inhaler, Assist Devices [Space 1 each PRN #1 spacer 11/10/18 03/22/19 Unknown Rx Chamber Plus] Spironolactone 12.5 tab PO QDAY 11/10/18 03/22/19 11/10/18 History carvediloL [Coreg] 1 tab PO BID 11/10/18 03/22/19 11/10/18 History predniSONE [Deltasone] 40 mg PO QDAY 5 Days tab 11/10/18 03/22/19 Unknown Rx Albuterol Mdi (or & Nicu Only) 2 puff IH QID PRN #1 inha 01/01/19 04/15/20 Unknown Rx [ProAir HFA Inhaler] Furosemide [Lasix TAB] 40 mg PO BID #40 tablet 01/01/19 04/15/20 04/13/20 22:30 Rx Spironolactone [Aldactone] 12.5 mg PO QDAY 01/01/19 04/15/20 04/13/20 22:30 History Albuterol Mdi (or & Nicu Only) 2 puff IH Q4HR PRN #1 inhalation 03/17/19 04/15/20 04/11/20 15:30 Rx [ProAir HFA Inhaler] Albuterol Mdi (or & Nicu Only) 1 puff IH TID PRN #2 inha 03/22/19 Unknown Rx [Proair] Albuterol Sulfate [Albuterol 0.63% 0.63 mg IH TID PRN #1 box 03/22/19 Unknown Rx NEBS] Ciprofloxacin HCl [Ciprofloxacin 500 mg PO Q12HR #12 tab 03/22/19 Unknown Rx TAB] Compressor, For Nebulizer [Ebase 1 each MC TID PRN #1 each 03/22/19 Unknown Rx Controller] Ipratropium [Atrovent NEB] 0.5 mg IH Q8HRT #1 box 03/22/19 Unknown Rx Pantoprazole [Protonix] 40 mg PO BID #60 tablet 03/22/19 Unknown Rx Prednisone [predniSONE 10 mg 10 mg PO .TAPER #1 tab.ds.pk 03/22/19 Unknown Rx (6-Day Pack, 21 Tabs)] Spironolactone [Aldactone] 25 mg PO QDAY #30 tablet 04/11/19 Unknown Rx carvediloL [Coreg] 3.125 mg PO BID #60 tablet 04/11/19 Unknown Rx Acetaminophen/Codeine [Tylenol 1 tab PO Q6H PRN #12 tab 02/19/20 Unknown Rx /Codeine # 3 tab] cephALEXin [Keflex] 500 mg PO Q8HR 7 Days #21 cap 02/19/20 Unknown Rx Acetaminophen [Acetaminophen TAB] 650 mg PO Q4H PRN tablet 04/15/20 Unknown Rx Aspirin EC [Ecotrin] 325 mg PO QDAY tablet 04/15/20 Unknown Rx Lisinopril [Zestril TAB] 2.5 mg PO QDAY 04/15/20 04/15/20 04/14/20 10:00 History carvediloL [Coreg] 6.25 mg PO BID 04/15/20 04/15/20 04/13/20 22:30 History HYDROcodone/APAP 7.5-325 [[place] 1 each PO Q6HR PRN #15 tablet 06/25/21 Unknown Rx 7.5/325] Ibuprofen [Motrin] 800 mg PO Q8HR PRN #20 tablet 06/25/21 Unknown Rx Penicillin V Potassium 500 mg PO Q6HR #28 tablet 06/25/21 Unknown Rx ED Review of Systems ROS: Stated complaint: CHEST PAIN Other details as noted in HPI Constitutional: denies: diaphoresis, fever Eyes: denies: eye pain ENT: denies: throat pain Respiratory: shortness of breath. denies: cough Cardiovascular: chest pain Endocrine: no symptoms reported Gastrointestinal: denies: nausea, vomiting Genitourinary: denies: dysuria Musculoskeletal: denies: back pain Neurological: denies: headache Physical Exam - Physical Exam Vital Signs: Vital Signs 11/12/21 11/12/21 09:27 10:13 Temperature 98.2 F Pulse Rate 75 Respiratory 22 Rate Blood Pressure 104/68 [Right] O2 Sat by Pulse 99 99 Oximetry Physical Exam: GENERAL: The patient is well-developed well-nourished female lying on stretcher using cell phone not appearing to be in acute distress. [] HEENT: Normocephalic. Atraumatic. Extraocular motions are intact. Patient has moist mucous membranes. NECK: Supple. Trachea midline CHEST/LUNGS: Clear to auscultation. There is no respiratory distress noted. HEART/CARDIOVASCULAR: Regular. There is no tachycardia. There is no gallop rub or murmur. ABDOMEN: Abdomen is soft, nontender. Patient has normal bowel sounds. There is no abdominal distention. SKIN: There is no rash. There is no edema. There is no diaphoresis. NEURO: The patient is awake, alert, and oriented. The patient is cooperative. The patient has no focal neurologic deficits. The patient has normal speech. GCS 15 MUSCULOSKELETAL: There is no evidence of acute injury. ED Course Vital Signs 11/12/21 11/12/21 09:27 10:13 Temperature 98.2 F Pulse Rate 75 Respiratory 22 Rate Blood Pressure 104/68 [Right] O2 Sat by Pulse 99 99 Oximetry - Reevaluation(s) Reevaluation #1: 11/12/21 12:37 Patient remains asymptomatic. Awaiting second troponin ED Medical Decision Making - Lab Data Result diagrams: 11/12/21 10:20 11/12/21 10:20 Laboratory Tests 11/12/21 11/12/21 11/12/21 10:20 10:20 10:45 WBC 5.4 RBC 4.61 Hgb 12.2 Hct 38.5 MCV 84 MCH 27 L MCHC 32 RDW 16.2 H Plt Count 222 Lymph % (Auto) 23.5 [place]ack[place] % (Auto) 7.6 H Eos % (Auto) 2.7 Baso % (Auto) 1.1 Lymph # (Auto) 1.3 [place]ack[place] # (Auto) 0.4 Eos # (Auto) 0.1 Baso # (Auto) 0.1 Seg Neutrophils % 65.1 Seg Neutrophils # 3.5 D-Dimer 233.76 Sodium 138 Potassium 3.8 Chloride 102.1 Carbon Dioxide 22 Anion Gap 18 BUN 13 Creatinine 1.1 Estimated GFR > 60 BUN/Creatinine Ratio 12 Glucose 106 H Calcium 8.8 Total Bilirubin 0.90 AST 17 ALT 25 Alkaline Phosphatase 83 Troponin T < 0.010 Total Protein 6.5 Albumin 3.8 L Albumin/Globulin Ratio 1.4 11/12/21 14:22 WBC RBC Hgb Hct MCV MCH MCHC RDW Plt Count Lymph % (Auto) [place]ack[place] % (Auto) Eos % (Auto) Baso % (Auto) Lymph # (Auto) [place]acken # (Auto) Eos # (Auto) Baso # (Auto) Seg Neutrophils % Seg Neutrophils # D-Dimer Sodium Potassium Chloride Carbon Dioxide Anion Gap BUN Creatinine Estimated GFR BUN/Creatinine Ratio Glucose Calcium Total Bilirubin AST ALT Alkaline Phosphatase Troponin T < 0.010 Total Protein Albumin Albumin/Globulin Ratio - EKG Data -: EKG Interpreted by Mi EKG shows normal: sinus rhythm Rate: normal - EKG Data When compared to previous EKG there are: no significant change Interpretation: unchanged when compared t (04/15/2020) - Radiology Data Radiology results: report reviewed (Chest x-ray), image reviewed (Chest x-ray) interpreted by me: Chest x-ray-no definite focal infiltrates, no pneumothorax [facility] [address] [place] [address] XRay Report Signed Patient: SEAN HERNANDEZ MR#: [id number] : 1980 Acct:[id number] Age/Sex: 40 / F ADM Date: 11/12/21 Loc: ED Attending Dr: Ordering Physician: ED MD LUIS Date of Service: 11/12/21 Procedure(s): XR chest routine 2V Accession Number(s): [id number] cc: ED DOCMD Fluoro Time In Minutes: XR chest routine 2V INDICATION / CLINICAL INFORMATION: chest pain. COMPARISON: 04/11/2019 FINDINGS: SUPPORT DEVICES: None. HEART /PULMONARY VASCULATURE: Heart is enlarged. No significant pulmonary vasculature congestion. LUNGS / PLEURA: No significant pulmonary or pleural abnormality. No pneumothorax. ADDITIONAL FINDINGS: No significant additional findings. IMPRE SSION: 1. No acute findings. Signer Name: Danny Schafer MD Signed: 11/12/2021 9:54 AM Workstation Name: [id number] Transcribed By: MARNIE Dictated By: DANNY SCHAFER MD Electronically Authenticated By: DANNY SCHAFER MD Signed Date/Time: 11/12/21953 DD/ 3 TD/TT: - Differential Diagnosis Atypical chest pain, anxiety, ACS, PE, GERD, hiatal hernia Critical care attestation.: If time is entered above; I have spent that time in minutes in the direct care of this critically ill patient, excluding procedure time. ED Disposition Clinical Impression: Atypical chest pain Disposition: 01 HOME / SELF CARE / HOMELESS Is pt being admited?: No Does the pt Need Aspirin: No Condition: Stable Instructions: Nonspecific Chest Pain, Adult Additional Instructions: Return to the emergency department should you develop worsening symptoms, inability to tolerate food or liquids, high fever or any other concerns Referrals: KENNETH HERNANDEZ MD [Staff Physician] - 3-5 Days (Dr. Hernandez is a c ardiologist. Please follow-up with her for further evaluation) Time of Disposition: 15:06
[2021-11-12 11:08] LABS: Basophils # (Auto) 0.1 K/mm3 (0.0-0.1); Basophils % (Auto) 1.1 % (0.0-1.8); Eosinophils # (Auto) 0.1 K/mm3 (0.0-0.4); Eosinophils % (Auto) 2.7 % (0.0-4.3); Hematocrit 38.5 % (30.3-42.9); Hemoglobin 12.2 gm/dl (10.1-14.3); Lymphocytes # (Auto) 1.3 K/mm3 (1.2-5.4); Lymphocytes % (Auto) 23.5 % (13.4-35.0); Mean Corpuscular HGB Conc 32 % (30-34); Mean Corpuscular Volume 84 fl (79-97); Monocytes # (Auto) 0.4 K/mm3 (0.0-0.8); Monocytes % (Auto) 7.6 % (0.0-7.3); Platelet Count 222 K/mm3 (140-440); Red Blood Count 4.61 M/mm3 (3.65-5.03); Red Cell Distribution Width 16.2 % (13.2-15.2)
[2021-11-12 11:16] LABS: Alanine Aminotransferase 25 units/L (7-56); Albumin 3.8 g/dL (3.9-5); BUN/Creatinine Ratio 12; Blood Urea Nitrogen 13 mg/dL (7-17); Calcium 8.8 mg/dL (8.4-10.2); Hemolysis Index 3
[2021-11-12 15:26] VITALS: BP 101/71
== END 2021-11-12 15:24 | disposition home or self-care (01) ==
LOC: ED 09:11
DX: R07.89 Other chest pain (principal); I50.9 Heart failure, unspecified; J44.9 Chronic obstructive pulmonary disease, unspecified; Z98.890 Other specified postprocedural states; Z79.899 Other long term (current) drug therapy; Z88.6 Allergy status to analgesic agent
CPT/HCPCS: 36415; 71046; 80053; 84484; 85025; 85379; 93005; 99284